=== PATIENT | male | born 1980 | race Caucasian/White ===

== ENCOUNTER 2018-03-29 14:22 | Emergency (ER) | payer SELFPAY ==
[~2018-03-29] VITALS: Ht 172.7 cm; Wt 141.7 kg
[~2018-03-29 14:22] MED LIST: CYCLOBENZAPRINE10 MG PO; DAILY VALUE1 EACH PO; LO-DOSE ASPIRIN81 M2 PO; MOTRIN800 MG PO; NAPROXEN500 MG PO; NORCO 5/3251 TABLET PO; PERCOCET 5/31 TABLET PO; ULTRAM50 MG PO; VALIUM5 MG PO
[2018-03-29 15:16] LABS: MCH 29.6 PG (29.0-34.0); MCHC 34.9 G/DL (30.0-36.0); PLATELET COUNT 161 K/uL (156-360); RBC DIS.WIDTH-CV 12.9 % (11.8-14.6); RED BLOOD COUNT 5.06 M/uL (4.00-5.50); WHITE BLOOD COUNT 6.1 K/uL (4.1-10.2)
[2018-03-29 15:26] LABS: PTT 32.3 SEC (25-37)
[2018-03-29 15:34] LABS: CHLORIDE 104 mEq/L (99-109); POTASSIUM 5.5 mEq/L (3.7-5.4); SODIUM 138 mEq/L (136-147)
[2018-03-29 15:36] LABS: GLUCOSE 131 mg/dL (70-99)
[2018-03-29 15:40] LABS: CREATININE 0.8 mg/dL (0.6-1.3); GFR ESTIMATE (CALCULATED) > 59 mL/min/ (58.99-99999)
[2018-03-29 15:41] LABS: UREA NITROGEN (BUN) 10 mg/dL (9-23)
[2018-03-29 15:44] LABS: TROP-I INTERPRETATION NEGATIVE; TROPONIN-I < 0.01 ng/mL (0.0-0.30)
[2018-03-29 18:15] VITALS: BP 147/92
== END 2018-03-29 18:17 | disposition home or self-care (01) ==
LOC: EXP 14:22 → EME 14:22 → EXP 18:17
PROVIDERS: Nurse Practitioner Family
DX: R04.0 Epistaxis (principal); R07.9 Chest pain, unspecified; R42 Dizziness and giddiness; Z79.82 Long term (current) use of aspirin; Z88.5 Allergy status to narcotic agent; Z88.2 Allergy status to sulfonamides
CPT/HCPCS: 71046; 80048; 84484; 85027; 85610; 85730; 93005; 99281; 99284; J7120